=== PATIENT | male | born 1940 | race Caucasian/White ===

== ENCOUNTER 2020-03-03 12:03 | Emergency (ER) | payer MEDICARE, OTHER ==
[~2020-03-03] VITALS: Ht 177.8 cm; Wt 73.9 kg
--- NOTE | 2020-03-03 12:15 | NUR ---
Dr. Molina at bedside for MSE
[2020-03-03] MEDS ORDERED: METAMUCIL PO (12:31)
[2020-03-03] MEDS ORDERED: QUET100T PO (12:31)
[2020-03-03] MEDS ORDERED: TAMS-3 PO (12:31)
[2020-03-03] MEDS ORDERED: ESCI10TA PO (12:31)
[2020-03-03] MEDS ORDERED: NA P133E RC (12:35)
[2020-03-03] MEDS ORDERED: ZOLP5TAB2 PO (12:35)
[2020-03-03] MEDS ORDERED: MAG355OR18 PO (12:35)
[2020-03-03] MEDS ORDERED: LORA-258 PO (12:35)
[2020-03-03] MEDS ORDERED: LISI10TA5 PO (12:35)
[2020-03-03] MEDS ORDERED: ATOR40TA PO (12:35)
[2020-03-03] MEDS ORDERED: AMLO10TA7 PO (12:35)
[2020-03-03] MEDS ORDERED: ACET-2154 PO (12:35)
[2020-03-03 13:10] LABS: BASOPHILS % (AUTO) 0.2 % (0.0-2.0); EOSINOPHILS # (AUTO) 0.1 K/uL (0.0-0.7); EOSINOPHILS % (AUTO) 1.9 % (0.0-7.0); HEMATOCRIT 36.9 % (36.7-47.1); HEMOGLOBIN 12.2 g/dL (12.5-16.3); LYMPHOCYTES # (AUTO) 1.1 K/uL (20.0-40.0); LYMPHOCYTES % (AUTO) 13.9 % (20.5-51.5); MEAN CORPUSCULAR HEMOGLOBIN 29.3 uug (23.8-33.4); MEAN CORPUSCULAR HGB CONC 33 g/dL (32.5-36.3); MEAN CORPUSCULAR VOLUME 88.7 fL (73.0-96.2); MONOCYTES # (AUTO) 0.8 K/uL (2.0-10.0); MONOCYTES % (AUTO) 10.5 % (0.0-11.0); NEUTROPHILS # (AUTO) 5.6 K/uL (1.8-8.9); NEUTROPHILS % (AUTO) 73.5 % (38.5-71.5); PLATELET COUNT (AUTO) 843 K/uL (152-348); RED BLOOD CELL COUNT(AUTO) 4.16 MIL/uL (4.06-5.63); WHITE BLOOD COUNT (AUTO) 7.7 K/uL (3.6-10.2)
--- NOTE | 2020-03-03 13:13 | NUR ---
Given food and fluids. Patient tolerated well
[2020-03-03 13:22] LABS: CARBON DIOXIDE 25 mmol/L (21-32); CHLORIDE 107 mmol/L (98-107); CREATININE 1.6 mg/dL (0.6-1.3); GLUCOSE 110 mg/dL (74-106); POTASSIUM 4.2 mmol/L (3.5-5.1); UREA NITROGEN, BLOOD 26 mg/dL (7-18)
[2020-03-03 13:28] LABS: ACETAMINOPHEN < 2.0 ug/mL (10-30); ALANINE AMINOTRANSFERASE 17 U/L (16-63); ALKALINE PHOSPHATASE 81 U/L (50-136); ASPARTATE AMINOTRANSFERASE 18 U/L (15-37); BILIRUBIN,DIRECT 0.1 mg/dL (0.0-0.2); BILIRUBIN,TOTAL 0.3 mg/dL (0.2-1.0); TOTAL PROTEIN, SERUM 6.5 g/dL (6.4-8.2)
[2020-03-03 13:29] LABS: ETHANOL < 3 MG/DL (0-0)
[2020-03-03 13:35] LABS: THYROID STIMULATING HORMONE 0.613 mIU/mL (0.358-3.740)
--- NOTE | 2020-03-03 13:42 | NUR ---
Patient has been medically cleared by Dr. Molina
--- NOTE | 2020-03-03 13:49 | NUR ---
Called Tyrone PETERSONW to evaluate the patient. no ETA given
[2020-03-03 14:07] LABS: *BILIRUBIN,URIN NEGATIVE (NEGATIVE); *BLOOD, URINE NEGATIVE (NEGATIVE); *CLARITY,URINE CLEAR (CLEAR); *COLOR,URINE YELLOW (YELLOW); *KETONES,URINE NEGATIVE (NEGATIVE); *UROBILINOGEN,URINE 0.2 E.U./dl (NORMAL); LEUKOCYTE ESTERASE ,URINE NEGATIVE (NEGATIVE); NITRITE, URINE NEGATIVE (NEGATIVE); UGLUCOSE NEGATIVE (NEGATIVE)
--- NOTE | 2020-03-03 15:00 | NUR ---
Art Capilla at bedside to evaluate patient
--- NOTE | 2020-03-03 15:30 | NUR ---
Patient has been cleared by Tyrone Bustos LCSW. Patient to be discharged back to [facility]. Admission coordinator Paige ([phone]) made aware
--- NOTE | 2020-03-03 16:27 | NUR ---
Patient discharged to home in stable condition. Written and verbal after care instructions given. Patient verbalizes understanding of instructions. Stressed follow up or return to ER for worsening s/s. Patient picked up by [facility]. patient able to ambulate to and from [facility]. all belongings with patient. NAD noted.
[2020-03-03 16:52] VITALS: BP 105/63
[2020-03-03 17:03] LABS: *AMPHETAMINE, URINE NEGATIVE (NEGATIVE); *BARBITURATE, URINE NEGATIVE (NEGATIVE); *CANNABINOID, URINE NEGATIVE (NEGATIVE); *COCCAINE, URINE NEGATIVE (NEGATIVE); *OPIATE, URINE NEGATIVE (NEGATIVE); *PHENCYCLIDINE SCREEN,URINE NEGATIVE (NEGATIVE)
== END 2020-03-03 16:27 ==
LOC: ER 12:03
DX: Z02.2 Encounter for examination for admission to residential institution (principal); I69.321 Dysphasia following cerebral infarction; R45.1 Restlessness and agitation; I25.10 Atherosclerotic heart disease of native coronary artery without angina pectoris; N18.9 Chronic kidney disease, unspecified; N40.0 Benign prostatic hyperplasia without lower urinary tract symptoms; Z79.899 Other long term (current) drug therapy
CPT/HCPCS: 36415; 71045; 80048; 80076; 80307 ×2; 80329; 81001; 84443; 84484; 85025; 85730; 87086; 87426; 93005; 99285; G0480; 70030-TC; A4663